=== PATIENT | female | born 1995 | race American Indian/Alaskan Native ===

== ENCOUNTER 2021-03-28 20:22 | Emergency (ER) | payer SELFPAY ==
[2021-03-28 21:36] VITALS: BP 100/53
--- NOTE | 2021-03-28 22:15 | XRay Report ---
CHEST 2 VIEWS INDICATION / CLINICAL INFORMATION: CP. COMPARISON: None available. FINDINGS: SUPPORT DEVICES: None. HEART / MEDIASTINUM: No significant abnormality. LUNGS / PLEURA: No significant pulmonary or pleural abnormality. No pneumothorax. ADDITIONAL FINDINGS: No significant additional findings. IMPRESSION: No acute cardiopulmonary abnormality. Signer Name: Fredrick Tam MD Signed: 03/28/2021 10:10 PM Workstation Name: [id number]
[2021-03-28] MEDS ORDERED: IPRATROPIUM/ALBUTEROL SULFATE 3 ML AMPUL.NEB IH ONE (22:30)
[2021-03-28] MEDS ORDERED: predniSONE 20 MG TAB PO ONE (22:30)
[2021-03-28] MEDS ORDERED: IBUPROFEN 600 MG TAB PO ONE (22:30)
--- NOTE | 2021-03-28 22:50 | Emergency Department Report ---
- General Chief Complaint: Chest Pain Stated Complaint: CHEST PAIN/FEVER/HEADACHE Source: patient Mode of arrival: Ambulatory Limitations: No Limitations - History of Present Illness Initial Comments: Patient is a nulliparous 25-year-old -Armenian female with a history of chronic asthma and heavy tobacco abuse who presents to the ED with complaint of acute onset persistent nasal and sinus congestion, frontal sinus pressure, frontal headache, sore throat, bilateral ear pain, persistent dry cough with pleuritic chest pain for the last 3 days, worse in the last 2 days. Patient states that she also experienced fever of 101 F 24 hours ago and took Tylenol which helped resolve the fever. Patient states that she has been using her albuterol inhaler and nebulizer at home and ran out of her nebulizer at home. Patient states that her own brother has had similar symptoms but less severe. Patient denies dizziness, syncope, nausea and vomiting, abdominal pain, dysuria, urinary frequency and urgency, seizures, change in vision or neck pain. MD Complaint: cough, sore throat, rhinorrhea, nasal congestion, sinus pain, other (Pleuritic chest pain with cough) -: Sudden, days(s) (3) Severity: severe Severity scale (0 -10): 7 Quality: sharp, aching Consistency: constant Improves With: nothing Worsens With: deep breaths, other (Cough) Context: sick contacts Associated Symptoms: denies other symptoms, fever, chills, myalgias, headache, rhinorrhea, nasal congestion, sore throat, cough, chest pain (Pleuritic chest pain with cough), shortness of breath (Wheezing), ear pain. denies: diaphoresis, abdominal pain, nausea, vomiting, diarrhea, dysuria, rash, confusion, right sweats, weight loss, epistaxis, hoarseness, other Treatments Prior to Arrival: "cold medicine" - Related Data Previous Rx's Medication Instructions Recorded Last Taken Type ALBUTEROL NEB's [Proventil 0.083% 3 ml IH Q6H PRN #75 ml 03/28/21 Unknown Rx NEBS] Albuterol Sulfate [Proventil Hfa] 1 - 2 puff IH Q6H PRN #1 hfa.aer.ad 03/28/21 Unknown Rx Azithromycin [Zithromax Z-DARLENE] 250 mg PO DAILY #6 tablet 03/28/21 Unknown Rx Benzonatate [Tessalon Perles] 100 mg PO Q8HR #30 capsule 03/28/21 Unknown Rx Cetirizine HCl [Zyrtec 10mg tab] 10 mg PO DAILY #30 tablet 03/28/21 Unknown Rx Ibuprofen [Motrin] 800 mg PO Q8HR PRN #30 tablet 03/28/21 Unknown Rx Prednisone [predniSONE 10 mg 10 mg PO .TAPER #21 tab.ds.pk 03/28/21 Unknown Rx (6-Day Pack, 21 Tabs)] Allergies Allergy/AdvReac Type Severity Reaction Status Date / Time amoxicillin Allergy Swelling Verified 03/28/21 21:13 ED Review of Systems ROS: Stated complaint: CHEST PAIN/FEVER/HEADACHE Other details as noted in HPI Constitutional: denies: chills, fever Eyes: denies: eye pain, eye discharge, vision change ENT: ear pain (Bilateral ear pain), throat pain, congestion, other (Frontal sinus pressure and pain) Respiratory: cough, shortness of breath, wheezing Cardiovascular: chest pain (Pleuritic chest wall pain). denies: palpitations Endocrine: no symptoms reported Gastrointestinal: denies: abdominal pain, nausea, vomiting, diarrhea Genitourinary: denies: urgency, dysuria, discharge Musculoskeletal: arthralgia, myalgia. denies: back pain, joint swelling Skin: denies: rash, lesions Neurological: headache (Frontal headache). denies: weakness, paresthesias Psychiatric: denies: anxiety, depression Hematological/Lymphatic: denies: easy bleeding, easy bruising ED Past Medical Hx - Past Medical History Previous Medical History?: Yes Hx Asthma: Yes - Surgical History Past Surgical History?: No - Social History Smoking Status: Current Every Day Smoker - Medications Home Medications: Home Medications Medication Instructions Recorded Confirmed Last Taken Type ALBUTEROL NEB's [Proventil 0.083% 3 ml IH Q6H PRN #75 ml 03/28/21 Unknown Rx NEBS] Albuterol Sulfate [Proventil Hfa] 1 - 2 puff IH Q6H PRN #1 hfa.aer.ad 03/28/21 Unknown Rx Azithromycin [Zithromax Z-DARLENE] 250 mg PO DAILY #6 tablet 03/28/21 Unknown Rx Benzonatate [Tessalon Perles] 100 mg PO Q8HR #30 capsule 03/28/21 Unknown Rx Cetirizine HCl [Zyrtec 10mg tab] 10 mg PO DAILY #30 tablet 03/28/21 Unknown Rx Ibuprofen [Motrin] 800 mg PO Q8HR PRN #30 tablet 03/28/21 Unknown Rx Prednisone [predniSONE 10 mg 10 mg PO .TAPER #21 tab.ds.pk 03/28/21 Unknown Rx (6-Day Pack, 21 Tabs)] ED Physical Exam - General Limitations: No Limitations General appearance: alert, in no apparent distress, obese - Head Head exam: Present: atraumatic, normocephalic, normal inspection - Eye Eye exam: Present: normal appearance, PERRL, EOMI. Absent: conjunctival injection, periorbital swelling, periorbital tenderness Pupils: Present: normal accommodation - ENT ENT exam: Present: mucous membranes moist, TM's normal bilaterally, normal external ear exam, other (Grossly congested nasal passages; palpable frontal and maxillary sinus tenderness; mild erythematous oropharynx with no tonsillar swelling) - Neck Neck exam: Present: normal inspection, full ROM. Absent: tenderness, lymphadenopathy - Respiratory Respiratory exam: Present: wheezes (Mildly diffuse coarse wheezes throughout), chest wall tenderness (Palpable reproducible diffuse anterior chest wall tenderness). Absent: normal lung sounds bilaterally, respiratory distress, rales, rhonchi, accessory muscle use, decreased breath sounds, prolonged expiratory - Cardiovascular Cardiovascular Exam: Present: regular rate, normal rhythm, normal heart sounds. Absent: systolic murmur, diastolic murmur, rubs, gallop - GI/Abdominal GI/Abdominal exam: Present: soft, normal bowel sounds. Absent: tenderness, guarding, rebound, hyperactive bowel sounds - Extremities Exam Extremities exam: Present: normal inspection, full ROM, normal capillary refill - Back Exam Back exam: Present: normal inspection, full ROM. Absent: tenderness, CVA tenderness (R), CVA tenderness (L), muscle spasm, paraspinal tenderness - Neurological Exam Neurological exam: Present: alert, oriented X3, CN II-XII intact, normal gait, reflexes normal - Psychiatric Psychiatric exam: Present: normal affect, normal mood - Skin Skin exam: Present: warm, dry, intact, normal color. Absent: rash ED Course Vital Signs 03/28/21 20:55 Temperature 98.8 F Pulse Rate 81 Respiratory 18 Rate Blood Pressure 100/53 O2 Sat by Pulse 98 Oximetry ED Medical Decision Making - Radiology Data Radiology results: report reviewed, image reviewed [facility] [address] [place] [address] XRay Report Signed Patient: JAMAL COVARRUBIAS MR# : [id number] : 1995 Acct:[id number] Age/Sex: 25 / F ADM Date: 03/28/21 Loc: ED Attending Dr: Ordering Physician: MIQUEL VELASQUEZ III, MD Date of Service: 03/28/21 Procedure(s): XR chest routine 2V Accession Number(s): [id number] cc: MIQUEL VELASQUEZ III, MD Fluoro Time In Minutes: CHEST 2 VIEWS INDICATION / CLINICAL INFORMATION: CP. COMPARISON: None available. FINDINGS: SUPPORT DEVICES: None. HEART / MEDIASTINUM: No significant abnormality. LUNGS / PLEURA: No significant pulmonary or pleural abnormality. No pneumothorax. ADDITIONAL FINDINGS: No significant additional findings. IMPRESSION: No acute cardiopulmonary abnormality. Signer Name: Leidy Ricks MD Signed: 03/28/2021 10:10 PM Workstation Name: [id number] Transcribed By: SS Dictated By: LEIDY RICKS Electronically Authenticated By: LEIDY RICKS Signed Date/Time: 03/28/212209 DD/ 09 TD/TT: - Medical Decision Making This is a nulliparous 25-year-old -Armenian female with a history of chronic asthma and heavy tobacco abuse who presents to the ED with complaint of acute onset persistent nasal and sinus congestion, frontal sinus pressure, frontal headache, sore throat, bilateral ear pain, persistent dry cough with pleuritic chest pain for the last 3 days, worse in the last 2 days. Patient states that she also experienced fever of 101 F 24 hours ago and took Tylenol which helped resolve the fever. Patient states that she has been using her albuterol inhaler and nebulizer at home and ran out of her nebulizer at home. Patient states that her own brother has had similar symptoms but less severe. In the ED, patient is alert and oriented x3 and is not in any distress. Patient was treated in the ED with DuoNeb and oral steroids as well as pain medications. Chest x-ray showed no acute cardiopulmonary abnormalities or pneumonitis. Based on the history and physical exam findings, patient symptoms are likely due to acute upper respiratory infection versus frontal sinusitis versus acute asthmatic bronchitis and chest wall pain. On reevaluation, patient's wheezing resolved and patient's pain is well controlled with medications. Patient was therefore discharged home on medications including a refill on her albuterol inhaler and nebulizers as well as steroid Dosepak and cough medications. Patient is advised to follow-up with her primary care physician in 5 to 7 days for reevaluation. Patient was also encouraged to consider quitting tobacco abuse to improve on her symptoms. Patient was otherwise advised return to the ED immediately if symptoms get worse. - Differential Diagnosis Pneumonia; asthma; bronchitis; URI; sinusitis; rhinitis; pharyngitis Critical care attestation.: If time is entered above; I have spent that time in minutes in the direct care of this critically ill patient, excluding procedure time. ED Disposition Clinical Impression: Acute non-recurrent frontal sinusitis, Acute upper respiratory infection, Acute bronchitis with asthma with acute exacerbation, Pleuritic chest pain, Tobacco abuse counseling Disposition: TO HOME OR SELFCARE Is pt being admited?: No Does the pt Need Aspirin: No Condition: Stable Instructions: Acute Bronchitis (ED), Sinusitis, Adult, [id number], Nonspecific Chest Pain, Adult, [id number], Upper Respiratory Infection, Adult, [id number], Cough, Adult, [id number], Acute Bronchitis, Adult, [id number]-[id number], Asthma, Adult, [id number], Steps to Quit Smoking Additional Instructions: Chest x-ray showed no acute cardiopulmonary abnormalities or pneumonitis. Your symptoms are likely due to acute upper respiratory infection causing sinusitis and bronchitis and asthma flare. Therefore take medications with food, drink plenty of fluids and follow-up with your primary care physician in 3 to 5 days for reevaluation. Consider quitting tobacco smoking habit improve on your symptoms. Prescriptions: Ibuprofen [Motrin] 800 mg PO Q8HR PRN #30 tablet PRN Reason: Pain , Severe (7-10) Prednisone [predniSONE 10 mg (6-Day Pack, 21 Tabs)] 10 mg PO .TAPER #21 tab.ds.pk ALBUTEROL NEB's [Proventil 0.083% NEBS] 3 ml IH Q6H PRN #75 ml PRN Reason: Wheezing Albuterol Sulfate [Proventil Hfa] 1 - 2 puff IH Q6H PRN #1 hfa.aer.ad PRN Reason: Dyspnea Benzonatate [Tessalon Perles] 100 mg PO Q8HR #30 capsule Azithromycin [Zithromax Z-DARLENE] 250 mg PO DAILY #6 tablet Cetirizine HCl [Zyrtec 10mg tab] 10 mg PO DAILY #30 tablet Referrals: [facility] [Provider Group] - 3-5 Days Forms: Work/School Release Form(ED) Time of Disposition: 22:56 Print Language: ALBANIAN
--- NOTE | 2021-03-29 10:55 | Electrocardiograph Report ---
[facility] Test Date: 2021-03-28 Test Time: 20:49:04 Pat Name: JAMAL COVARRUBIAS Department: Room: Gender: F [employer]: roby : 1995 Requested By: MIQUEL VELASQUEZ III Order Number: [id number] Reading MD: Juan Pretty Measurements Intervals [place] Rate: 72 P: 59 MO: 153 QRS: 42 QRSD: 76 T: 53 QT: 361 QTc: 397 Interpretive Statements Sinus rhythm ST elev, probable normal early repol pattern No previous ECG available for comparison Electronically Signed On 03-29-2021 10:54:49 EDT by Juan Pretty
== END 2021-03-28 23:26 | disposition home or self-care (01) ==
LOC: ED 20:22
DX: J01.10 Acute frontal sinusitis, unspecified (principal); J06.9 Acute upper respiratory infection, unspecified; J45.901 Unspecified asthma with (acute) exacerbation; J20.9 Acute bronchitis, unspecified; F17.200 Nicotine dependence, unspecified, uncomplicated; Z98.890 Other specified postprocedural states; Z88.1 Allergy status to other antibiotic agents; Z79.899 Other long term (current) drug therapy
CPT/HCPCS: 71046; 93005; 94640; 99283; J7512